=== PATIENT | female | born 1950 | race Two or more races ===

== ENCOUNTER 2024-04-30 09:41 | Emergency (ER) | payer MEDICARE, BC ==
[~2024-04-30] VITALS: Ht 160 cm; Wt 52.6 kg
[2024-04-30 09:48] VITALS: BP 152/76; PULSE 95; RESP 16; TEMP 98.2; O2SAT 98
[2024-04-30] MEDS ORDERED: LISI2.5T14 PO (11:20)
[2024-04-30] MEDS ORDERED: IBUP-1984 PO (11:21)
== END 2024-04-30 11:41 | disposition home or self-care (01) ==
LOC: ER 09:42
DX: S90.111A Contusion of right great toe without damage to nail, initial encounter (principal); I10 Essential (primary) hypertension; Z79.899 Other long term (current) drug therapy; Z79.1 Long term (current) use of non-steroidal anti-inflammatories (NSAID); Z88.1 Allergy status to other antibiotic agents; W22.8XXA Striking against or struck by other objects, initial encounter; Y93.89 Activity, other specified; Y92.89 Other specified places as the place of occurrence of the external cause; Y99.8 Other external cause status
CPT/HCPCS: 73630; 99283